=== PATIENT | male | born 1945 | race Caucasian/White ===

== ENCOUNTER 2019-02-25 20:54 | Emergency (ER) | payer OTHER ==
[~2019-02-25] VITALS: Ht 165.1 cm; Wt 79.4 kg
[~2019-02-25 20:54] MED LIST: ATORVASTATIN CA20 M1 PO; BACTRIM DS1 TAB PO; CIPROFLOXACIN250 M2 PO; COL100 PO; FLO4 PO; LAC PO; LEVAQUIN500 MG PO; LIPI10 PO; MOTRIN800 MG PO; NORCO1 TA1 PO
[2019-02-25 20:59] VITALS: Ht 165.1 cm; Wt 79.4 kg
[2019-02-25 21:46] LABS: BASOPHIL % 0.7 % (0-2); PLATELET COUNT 206 x10^3mcL (130-400); RED CELL DISTRIBUTION WIDTH 13.8 % (11.5-14.5)
[2019-02-25 22:05] LABS: CALCIUM 9.4 mg/dL (8.5-10.1); CARBON DIOXIDE 27.5 mmol/L (21-32); CHLORIDE SERUM 105 mmol/L (98-107); CREATININE SERUM 1.2 mg/dL (0.7-1.3); GLUCOSE SERUM 157 mg/dL (74-106); SODIUM SERUM 142 mmol/L (136-145)
[2019-02-25 22:10] LABS: ALBUMIN 4.2 g/dL (3.4-5.0); ALKALINE PHOSPHATASE 96 U/L (46-116); ALT/SGPT 44 U/L (16-63); AST/SGOT 30 U/L (15-37); BILIRUBIN TOTAL 0.4 mg/dL (0.20-1.00); MAGNESIUM 1.9 mg/dL (1.8-2.4); TOTAL PROTEIN, SERUM 7.2 g/dL (6.4-8.2)
[2019-02-25 23:05] LABS: AMPHETAMINE QUAL UR NONE DETECTED (See below)
[2019-02-25 23:33] VITALS: BP 122/70
== END 2019-02-25 23:33 | disposition home or self-care (01) ==
LOC: ED 20:54
PROVIDERS: Emergency Medicine
DX: T40.7X1A Poisoning by cannabis (derivatives), accidental (unintentional), initial encounter (principal); I10 Essential (primary) hypertension; E78.00 Pure hypercholesterolemia, unspecified; Y92.89 Other specified places as the place of occurrence of the external cause
CPT/HCPCS: 36415; J8597